=== PATIENT | female | born 1975 | race Caucasian/White ===

== ENCOUNTER 2020-06-21 14:58 | Outpatient (CLI) | payer OTHER, SELFPAY ==
--- NOTE | ~2020-06-21 | MM_ITS ---
EXAMINATION: MM screening [facility] BI w tereza HISTORY: Screening mammogram TECHNIQUE: Craniocaudal and mediolateral oblique 3-D tomosynthesis images were obtained and synthetic 2-D images were generated. CAD analysis was submitted and interpreted. COMPARISON: 04/19/2017 diagnostic bilateral digital mammogram and limited left breast ultrasound 06/17/2007 bilateral diagnostic digital mammogram and bilateral breast ultrasound BREAST PARENCHYMAL COMPOSITION: The breasts are heterogeneously dense, which may obscure small masses . FINDINGS: There is no evidence of suspicious mass, calcification, or architectural distortion to sugg est malignancy in either breast. There has been no suspicious interval change. IMPRESSION: 1. No mammographic evidence of malignancy. 2. Recommend routine screening mammography in one year. BI-RADS Category 1: Negative Reviewed, dictated and finalized at location A.
== END 2020-06-21 14:59 | disposition home or self-care (01) ==
LOC: ANHIMG 15:01
PROVIDERS: PCP Obstetrics & Gynecology; Visit Provider Obstetrics & Gynecology
DX: Z12.31 Encounter for screening mammogram for malignant neoplasm of breast (principal)
CPT/HCPCS: 77063; 77067

== ENCOUNTER 2021-06-24 07:30 | Outpatient (CLI) | payer OTHER, SELFPAY ==
--- NOTE | ~2021-06-24 | MM_ITS ---
EXAMINATION: MM screening [facility] BI w tereza HISTORY: Screening mammogram TECHNIQUE: Craniocaudal and mediolateral oblique 3-D tomosynthesis images were obtained and synthetic 2-D images were generated. CAD analysis was submitted and interpreted. COMPARISON: No prior mammogram is available for comparison at this institution. BREAST PARENCHYMAL COMPOSITION: The breasts are heterogeneously dense, which may obscure small masses . FINDINGS: Bilateral mammographic asymmetries are noted. Bilateral diagnostic mammography is recommend ed, with ultrasound if required. IMPRESSION: 1. Bilateral mammographic asymmetries 2. Bilateral diagnostic mammography is recommended, with ultrasound if required BI-RADS Category 0: Incomplete: Needs additional imaging evaluation. Reviewed, dictated and finalized at location A.
== END 2021-06-24 07:31 | disposition home or self-care (01) ==
LOC: ANHIMG 07:34
PROVIDERS: PCP Obstetrics & Gynecology; Visit Provider Obstetrics & Gynecology
DX: Z12.31 Encounter for screening mammogram for malignant neoplasm of breast (principal); R92.8 Other abnormal and inconclusive findings on diagnostic imaging of breast
CPT/HCPCS: 77063; 77067

== ENCOUNTER 2021-07-15 11:50 | Outpatient (CLI) | payer OTHER, SELFPAY ==
--- NOTE | ~2021-07-15 | MMUS_ITS ---
EXAMINATION: MM diagnostic carlos BI w tereza, US breast BI complete HISTORY: Bilateral mammographic asymmetries reported on 06/24/2021 screening mammogram TECHNIQUE: Additional 3-D tomosynthesis images of both breasts were performed and synthetic 2-D image s were generated. CAD analysis was submitted and interpreted. High resolution bilateral complete krishna st ultrasound including all 4 quadrants and subareolar areas was performed. COMPARISON: 06/24/2021, 06/21/2020, 04/19/2017 bilateral screening mammogram examinations FINDINGS: MAMMOGRAPHIC FINDINGS: No suspicious reproducible mass or architectural distortion is evident. Occasional benign calcificati ons. No skin thickening or retraction. ULTRASOUND: No suspicious solid lesion or shadowing of either breast is detected. Right breast: 1:00 near nipple: 3.3 x 3 mm cyst 6:00 3 cm from nipple: 4.4 x 8.1 mm partially septated cyst Left breast: 12:00 near nipple: 5.8 x 2.4 x 4.3 mm simple cyst with through transmission posterior enhancement IMPRESSION: 1. No mammographic evidence of malignancy 2. Routine annual mammographic screening is recommended BI-RADS Category 2: Benign finding(s). Reviewed, dictated and finalized at location A. YNAECOLOGIST IMPRESSION: 1. No mammographic evidence of malignancy 2. Routine annual mammographic screening is recommended BI-RADS Category 2: Benign finding(s).
== END 2021-07-15 11:51 | disposition home or self-care (01) ==
LOC: ANHIMG 11:51
PROVIDERS: PCP Obstetrics & Gynecology; Visit Provider Obstetrics & Gynecology
DX: R92.8 Other abnormal and inconclusive findings on diagnostic imaging of breast (principal)
CPT/HCPCS: 76641; 77062; 77066; G0279

== ENCOUNTER → 2023-04-13 12:48 | Outpatient (CLI) | payer OTHER, SELFPAY ==
--- NOTE | ~2023-04-13 | MM_ITS ---
EXAMINATION: MM screening [facility] BI w tereza HISTORY: Screening mammogram TECHNIQUE: Craniocaudal and mediolateral oblique 3-D tomosynthesis images were obtained and synthetic 2-D images were generated. CAD analysis was submitted and interpreted. COMPARISON: 07/15/2021, 06/24/2021, 06/21/2020, 04/19/2017 BREAST PARENCHYMAL COMPOSITION: There are scattered areas of fibroglandular density. FINDINGS: No suspicious mass, calcification, or architectural distortion are identified in either gisela ast to suggest malignancy. There has been no suspicious interval change. IMPRESSION: 1. No mammographic evidence of malignancy. 2. Recommend routine screening mammography in one year. BI-RADS Category 1: Negative Reviewed, dictated and finalized at location A.
== END ==
PROVIDERS: PCP Obstetrics & Gynecology; Visit Provider Obstetrics & Gynecology
DX: Z12.31 Encounter for screening mammogram for malignant neoplasm of breast (principal)
CPT/HCPCS: 77063; 77067

== ENCOUNTER 2023-08-17 12:43 | Outpatient (CLI) | payer OTHER, SELFPAY ==
--- NOTE | ~2023-08-17 | US_ITS ---
EXAMINATION: US pelvic complete w TV DATE: 08/17/2023 13:06 INDICATION: Abnormal uterine bleeding. TECHNIQUE: Multiple transabdominal and transvaginal sonographic images of the pelvis were obtained. COMPARISON: None. FINDINGS: TRANSABDOMINAL ULTRASOUND: The uterus measures 7.3 x 4.2 x 3.4 cm. There is no free fluid in the pelvis. TRANSVAGINAL ULTRASOUND: The endometrial complex measures 5 mm in thickness. There is a 1.6 cm intramural fibroid anteriorly. The ovaries are not visualized. IMPRESSION: 1. Uterine fibroid. Reviewed, dictated and finalized at location A. REL PATTERNMAKER IMPRESSION: 1. Uterine fibroid.
== END 2023-08-17 12:44 ==
PROVIDERS: PCP Nurse Practitioner Family; Visit Provider Obstetrics & Gynecology
DX: N93.9 Abnormal uterine and vaginal bleeding, unspecified (principal); D25.9 Leiomyoma of uterus, unspecified
CPT/HCPCS: 76830; 76856

== ENCOUNTER 2024-07-18 10:32 | Outpatient (CLI) | payer OTHER, SELFPAY ==
--- NOTE | ~2024-07-18 | MM_ITS ---
EXAMINATION: MM screening carlos BI w tereza HISTORY: Screening mammogram TECHNIQUE: Craniocaudal and mediolateral oblique 3-D tomosynthesis images were obtained and synthetic 2-D images were generated. CAD analysis was submitted and interpreted. COMPARISON: 04/13/2023, 06/24/2021 BREAST PARENCHYMAL COMPOSITION:Not Dense. There are scattered areas of fibroglandular density. FINDINGS: No suspicious mass, calcification, or architectural distortion are identified in either gisela ast to suggest malignancy. There has been no suspicious interval change. IMPRESSION: No mammographic evidence of malignancy. Recommend routine screening mammography in one year. BI-RADS Category 1: Negative Reviewed, dictated and finalized at location M. IMPLEMENTATION SPECIALIST
== END 2024-07-18 10:33 | disposition home or self-care (01) ==
LOC: CHSIMG 10:32
PROVIDERS: PCP Nurse Practitioner Family; Visit Provider Obstetrics & Gynecology
DX: Z12.31 Encounter for screening mammogram for malignant neoplasm of breast (principal)
CPT/HCPCS: 77063; 77067

== ENCOUNTER 2024-11-30 10:00 | Emergency (ER) | payer OTHER, SELFPAY ==
--- OUTSIDE RECORDS SUMMARY | 2024-11-30 10:03 | XMS_ITS | Clinical Summary ---
Author Organization [facility] Address [address] [place] [address] Care Team Providers Care Mathematics Lecturer Name Role Phone Unavailable Primary Care Provider Unavailabl e Immunizations Name Administration Dates Next Due MODERNA COVID-19 (12+) MRNA, LNP-S, PF, 100 MCG/ 0.5 ML DOSE 10/15/2020,09/17/2020 Social History Tobacco Use Types Packs/Day Years Used Date Smoking Tobacco: Never Assessed Comments Unknown Sex and Gender Information Value Date Recorded Sex Assigned at Not on file Legal Sex Female 8:07 PM CDT Gender Identity Not on file Sexual Orientation Not on file Plan of Treatment Health Maintenance Due Date Last Done Comments Cervical Cancer Screening Pap Smear (Age 30 to 64) Every 3 Years 1976 Colorectal Cancer Screening Colonoscopy (10 Years) 1976 Annual Physical 1979 Hepatitis C 1994 DTaP, Tdap and Td Vaccines (1 - Tdap) 1995 04/23/1981, 03/30/1978, 1976, Additional history exists Hepatitis B Vaccines (1 of 3 - 19+ 3-dose series) 1995 Cervical Cancer Screening Pap with HPV Testing (Age 30 to 64) Every 5 Years 2006 Cervical Cancer Screening with HPV 2006 Mammogram Screening 2016 COVID-19 Vaccine ( season) 2024 10/15/2020, 09/17/2020 Influenza Adult (#1) 2024 Meningococcal B Vaccine Aged Out No l onger eligible based on patient's age to complete this topic Meningococcal Vaccine Aged Out No yari kian eligible based on patient's age to complete this topic Pneumococcal Vaccine: Pediatrics (0 to 5 Years) and At-Risk Patients (6 to 64 Years) Aged Out No longer eligible based on patient's age to complete this topic RSV Immunizations Under 20 Months Aged Out No longer eligible based on patient's age to complete this topic
--- OUTSIDE RECORDS SUMMARY | 2024-11-30 10:03 | XMS_ITS | Referral Summary ---
Author Organization [facility] [address] Address [address] [place] [address] Care Team Providers Care Fur Tanner Name Role Phone Kristopher Monge MD Primary Care Provider [phone] Allergies Active Allergy Reactions Criticality Noted Date Comments Doxycycline Hives Medium 07/06/2020 Minocycline Other (See comments) Low 07/06/2020 Blue blotching on legs Tetracycline Other (See comments) Low 07/06/2020 Elevated liver enzymes Medications cholecalciferol (VITAMIN D-3) 50,000 unit capsule Take 1 capsule (50,000 Units total) by mouth once a week Active multivitamin capsule Take 1 capsule by mouth daily Active esomeprazole DR (NexIUM) 40 mg capsule TAKE 1 CAPSULE BY MOUTH ONCE DAILY BEFORE BREAKFAST 30 capsule 2 Active spironolactone (ALDACTONE) 100 mg tablet Take 1 tablet (100 mg total) by mouth daily 4 Active Active Problems Problem Noted Date Diagnosed Date Colon cancer screening 11/19/2023 Encounter for screening for malignant neoplasm o f colon 11/12/2023 Family history of colon polyps, unspecified 11/01 Abnormal TSH 07/06/2020 Overview (07/06/2020): Patientreassured that in view of normal free t4, it is unlikley her symptoms are due to thyroid issues Gastroesophageal reflux disease without esophagi tis 07/06/2020 Overview (07/06/2020): PPI. EGD Social History Tobacco Use Types Packs/Day Years Used Date Smoking Tobacco: Never Smokeless Tobacco: Never AUDIT-C Answer Date Recorded Q1: How often do you have a drink containing alc ohol? Monthly or less 12/21/2023 Q2: How many drinks containi ng alcohol do you have on a typical day when you are drinking? 1 or 2 12/21/2023 Q3: How often do you have si x or more drinks on one occasion? Never 12/21/2023 Personal Safety Answer Date Recorded Have you ever been in or are you currently in a harmful physical or emotional relationship or is someone making you feel afraid or unsafe? 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 Gender Identity Not on file Sexual Orientation Not on file Last Filed Vital Signs Vital Sign Reading Time Taken Comments Blood Pressure 118/76 01/20/2024 5:22 PM CDT Pulse 68 01/20/2024 5:22 PM CDT Temperature 36.9 C (98.4 F) 01/20/2024 5:22 PM CDT Respiratory Rate 16 01/20/2024 5:22 PM CDT Oxygen Saturation 100% 01/20/2024 5:22 PM CDT Inhaled Oxygen Concentration - - Weight 77.8 kg (171 lb 8 oz) 01/20/2024 5:22 PM CDT Height 167.6 cm (5' 6 ) 01/20/2024 5:22 PM CDT Body Mass Index 27.68 01/20/2024 5:22 PM CDT Plan of Treatment Scheduled Procedures Name Priority Associated Diagnoses Date/Ti me COLONOSCOPY Open Access Encounter for screening for malignant neoplasm of colon Family history of colon polyps, unspecified Procedures Procedure Name Priority Date/Time Associated Diagnosis Comments COLONOSCOPY 12/21/2023 11:30 AM CDT from Last 3 Months or Most Recently Relevant to Health Maintenance Results * Colonoscopy (12/21/2023 11:30 AM CDT) Anatomical Region Laterality Modality Other Narrative Procedure Note Delmar Ortiz MD PhD - 12/21/2023 11:30 AM CDT [facility] Patient Name: Mylene Badillo Procedure Date: 12/21/2023 11:30 AM Date of : 1975 Admit Type: Outpatient Age: 48 Gender: Female Attending MD: Delmar Ortiz MD,PHD Room: [facility] ENDOSCOPY ROOM 8 Note Status: Case Work Aide Override THIS EXAM WAS SENT IN ERROR Delmar Ortiz MD PhD ENDOSCOPY PROCEDURES E dited Result - Final from Last 3 Months or Most Recently Relevant to Health Maintenance Insurance [place] [address] [facility] Address: [id number] [place] [id number] [place] [address] [facility] Address: [place] [address] Advance Directives For more information, please contact: [phone] * Full Code (Latest Code Status on File) Date Activated Date Inactivated Comments 12/21/2023 12:05 PM 12/21/2023 6:13 PM * Full Code Date Activated Date Inactivated Comments 10/01/2020 12:42 PM 10/01/2020 7:07 PM Care Teams Fur Tanner Relationship Specialty Start Date End Date Kristopher Monge MD [address] [id number] PCP - General Family Medicine 11/12/23
--- OUTSIDE RECORDS SUMMARY | 2024-11-30 10:03 | XMS_ITS | Clinical Summary ---
Author Organization [facility] [address] Address [address] [place] [address] Care Team Providers Care Autism Specialist Name Role Phone Kristopher Monge MD Primary Care Provider [phone] Allergies Active Allergy Reactions Criticality Noted Date [...] esophagi tis 07/06/2020 Overview (07/06/2020): PPI. EGD Surgical History Surgery Date Site/Laterality Comments TURBINOPLASTY Medical History Medical History Date Comments Nasal turbinate hypertrophy GERD (gastroesophageal reflux disease) Dysphagia Urolithiasis Delayed emergence from general anesthesia Family History Medical History Relation Name Comments Thyroid disease Father's Brother Thyroid disease Father's Sister Esophageal cancer Maternal Grandfather Thyroid disease Maternal Grandmother Thyroid disease Sister Relation Name Status Comments Father's Brother Father's Sister Maternal Grandfather Maternal Grandmother Sister Social History Tobacco Use Types Packs/Day Years [...] on file 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 Gender Identity Not on file Sexual Orientation Not on file Obstetrics History Last Filed Vital Signs Vital Sign Reading [...] colon Family history of colon polyps, unspecified Health Maintenance Due Date Last Done Comments Breast Cancer Screening-Mammogram 1976 Cervical Cancer Screening 1976 Depression Screening 1976 Hepatitis C Screening 1976 Regular Well Visit/Exam 18-64 1994 Covid-19 Vaccine ( season) 2024 10/15/2020, 09/17/2020 Influenza Vaccine (#1) 2024 07/18/2015, 2012 DTaP/Tdap/Td Vaccine (7 - Td or Tdap) 08/29/2029 08/29/2019, 04/05/1991, 04/23/1981, Additional history exists Colon Cancer Screening-Colonoscopy 12/20/2033 12/21/2023, 12/21/2023 Hepatitis B Screening Completed 06/19/2002 , 01/17/2002, 12/17/2001 Pneumococcal vaccine <65 Aged Out No longer eligible based on patient's age to complete this topic Procedures Procedure Name Priority Date/Time Associated Diagnosis [...] Female Attending MD: Delmar Ortiz MD,PHD Room: [facility] ENDOSCOPY ROOM 8 Note Status: Human Machine Interface Engineer Override THIS EXAM WAS SENT IN ERROR Delmar Ortiz MD PhD ENDOSCOPY PROCEDURES E dited Result - Final from Last 3 Months or Most Recently Relevant to Health Maintenance Insurance [facility] [place] [address] [facility] CHOICE PLUS [facility] Advance Directives For more information, please contact: [phone] * Full Code (Latest Code Status on File) Date Activated Date Inactivated Comments 12/21/2023 12:05 PM 12/21/2023 6:13 PM * Full Code Date Activated Date Inactivated Comments 10/01/2020 12:42 PM 10/01/2020 7:07 PM Care Teams Autism Specialist Relationship Specialty Start Date End Date Kristopher Monge MD [address] [address] PCP - General Family Medicine 11/12/23
[2024-11-30 10:12] VITALS: BP 110/69; PULSE 78; RESP 18; TEMP 36.6; O2SAT 98
--- NOTE | 2024-11-30 10:12 | ED_ITS ---
HPI - General Adult General Chief complaint: Upper Respiratory Infection Stated complaint: cough Time Seen by Provider: 11/30/24 10:04 Source: patient Mode of arrival: ambulatory Limitations: no limitations History of Present Illness HPI narrative: 49-year-old female patient presents to the [facility] with complaints of a cough for the past 6 days. Patient states she has had a lot of congestion, runny nose and a cough. Patient denies any fevers, body aches or chills. Patient states she has been using [id number] Mucinex and Delsym for her symptoms. As well as she takes a daily Zyrtec. Related Data Home Medications ?Medication ?Instructions ?Recorded ?Confirmed ?Last Taken ?Type cholecalciferol (vitamin D3) 25 25 mcg PO DAILY 11/30/24 Unknown History mcg (1,000 unit) capsule vitamin K2 45 mcg capsule 45 mcg PO DAILY 11/30/24 Unknown History Allergies Allergy/AdvReac Type Severity Reaction Status Date / Time doxycycline Allergy Mild Rash Verified 11/30/24 10:12 minocycline Allergy Mild Itching Verified 11/30/24 10:12 Review of Systems 2 Review of Systems: CONSTITUTIONAL: Denies fever, chills, or sweats. EYES: Denies visual changes, redness, or discharge. ENT: Positive rhinorrhea, congestion, sore throat, and otalgia. CARDIOVASCULAR: Denies chest pain, palpitations, or edema. RESPIRATORY: positive cough , denies dyspnea. GASTROINTESTINAL: Denies abdominal pain, nausea, vomiting, or diarrhea. GENITOURINARY: Denies dysuria or hematuria. SKIN: Denies rash or itching. MUSCULOSKELETAL: Denies back pain, joint pain, or myalgia. NEUROLOGIC: Denies headache, numbness, or weakness. PSYCHIATRIC: Denies anxiety or depression. [facility] Past Medical History Medical History Family hx colonic polyps normal colonoscopy 12/21/2023, recheck 5 years. Abdominal discomfort Encounter to establish care Low serum triiodothyronine (T3) Anemia COVID Acid reflux Environmental allergies Surgical History Surgical History H/O sinus surgery H/O gynecological procedure Mirena Iud insertion - 2014 Mirena Iud removal - 07/09/2020 H/O bilateral salpingectomy Family History Family History Grandparent Hypertension Cerebrovascular accident Family history of malignant neoplasm of breast Diabetes mellitus Mother Hypertension Father Non-Hodgkin's lymphoma Daughter Karel de la Tourette's syndrome Depression Sibling Alcoholism Depression Thyroid disease Grandparent Esophageal cancer Other Breast cancer Social History Social History Smoking status: Never smoker Alcohol intake: current Substance use: never Substance use type: does not use Do You Feel Safe in your Home?: Yes Lack of Transportation: No Lack of Food: Never True Current Housing: I Have Housing Concerned About Future Housing: No Difficulty Paying Gas/Electric Bills: No Difficulty Paying for Meds: No Currently Unemployed: No Education: Associate Degree Difficulty w/ Childcare or Family Care: No Living arrangements: with family Occupation/Education: occupation Gender identity (if verbalized by the patient): Female Comments At the time of my signature I agree with nursing past medical history, surgical, social, and family history. There is no relevant family history pertinent to the presenting complaint. Exam Narrative: GENERAL: Well-appearing, well-nourished, and in no acute distress. HEAD: Normocephalic, atraumatic. EYES: PERRLA and EOMI. ENT: Nares with erythema edema noted bilaterally, no active rhinorrhea or epistaxis. Mucous membranes moist. posterior pharynx with no erythema, tonsillar enlargement, exudates or lesions present. Bilateral TMs do appear to have some fluid behind them. No erythema no foreign bodies the canal. NECK: Supple. No lymphadenopathy CHEST: Clear to auscultation. No respiratory distress. HEART: Regular rate and rhythm. No murmur heard. Normal peripheral pulses. ABDOMEN: Soft, nontender, nondistended, normal active bowel sounds. EXTREMITIES: Normal range of motion. No edema. SKIN: Warm, dry, no rash. NEURO: No focal deficits. Alert and oriented x3. Course Course Level of Care: Express Care Visit Vital Signs Vital signs: Vital Signs Temperature 36.6 C 11/30/24 10:12 Pulse Rate 78 11/30/24 10:12 Respiratory Rate 18 11/30/24 10:12 Blood Pressure 110/69 11/30/24 10:12 Pulse Oximetry 98 03/30/25 10:12 Oxygen Delivery Room Air 11/30/24 10:12 Temperature 36.6 C 11/30/24 10:12 Pulse Rate 78 11/30/24 10:12 Respiratory Rate 18 11/30/24 10:12 Blood Pressure 110/69 11/30/24 10:12 Pulse Oximetry 98 11/30/24 10:12 Oxygen Delivery Room Air 11/30/24 10:12 Vital signs reviewed. Medical Decision Making MDM Narrative Medical decision making narrative: Re-evaluated patient notified her that there is no evidence of a bacterial infection today. Discussed with her this is most likely sinus drainage causing the cough. Plan of care for patient today is to discharge home with oral steroids to help with congestion and drainage as well as Tessalon Perles to help with cough. Patient verbalized understanding denies any other questions or concerns at this time. Differential Diagnosis Differential Diagnosis: Differential diagnosis: Allergic rhinitis, chronic sinusitis, tonsillitis, acute sinusitis, infectious mononucleosis, seasonal influenza, pertussis, diphtheria, meningococcal disease, viral syndrome, viral bronchitis, RSV, COVID- 19 Vital Signs Vital Signs: Vital Signs Temperature 36.6 C 11/30/24 10:12 Pulse Rate 78 11/30/24 10:12 Respiratory Rate 18 11/30/24 10:12 Blood Pressure 110/69 11/30/24 10:12 Pulse Oximetry 98 11/30/24 10:12 Oxygen Delivery Room Air 11/30/24 10:12 Temperature 36.6 C 11/30/24 10:12 Pulse Rate 78 11/30/24 10:12 Respiratory Rate 18 11/30/24 10:12 Blood Pressure 110/69 11/30/24 10:12 Pulse Oximetry 98 11/30/24 10:12 Oxygen Delivery Room Air 11/30/24 10:12 Critical Care Time Critical Care Time Critical Care Time: No Discharge Plan Discharge Clinical Impression: Viral URI with cough Patient Disposition: Home, Self-Care Condition: Stable Instructions: Antibiotic Form, Acute Cough (ED) Additional Instructions: Viral illness may last between 7-12days; antibiotic is NOT recommended at this time. Recommend antihistamine such as Benadryl at night time and Claritin/Zyrtec/Maria Isabel during the day Cough syrup may cause drowsiness; avoid driving or take it at night time. Also, recommend symptomatic treatment includes: rest, fluids, and increase humidity of the air at home. Recommend Acetaminophen or nonsteroidal anti-inflammatory agents (NSAIDs) as directed in the bottle to reduce fever and/pain/headache. Avoid smoking/second-hand smoke. Limit visits to areas with large crowds. Please schedule a follow-up visit with your personal physician for further evaluation and treatment within 3-5days. Including recheck and discussion of your blood pressure. If your symptoms persist, change or worsen significantly before you can contact your personal physician then please, without delay, go to the emergency department for further evaluation. Patient Language: Lithuanian Prescriptions: New benzonatate 200 mg capsule 200 mg PO TID PRN (Reason: cough) 10 Days Qty: 30 0RF prednisone 20 mg tablet 20 mg PO DAILY 5 Days Qty: 5 0RF No Action cholecalciferol (vitamin D3) 25 mcg (1,000 unit) capsule 25 mcg PO DAILY vitamin K2 45 mcg capsule 45 mcg PO DAILY spironolactone 100 mg tablet 100 mg PO DAILY Qty: 90 3RF Follow-up/Referrals: Savi Be NP [Primary Care Provider] - Time of Disposition: 10:31
== END 2024-11-30 10:34 | disposition home or self-care (01) ==
PROVIDERS: Emergency Provider Nurse Practitioner Family; PCP Nurse Practitioner Family
DX: J06.9 Acute upper respiratory infection, unspecified (principal); R05.9 Cough, unspecified; K21.9 Gastro-esophageal reflux disease without esophagitis; Z86.16 Personal history of COVID-19
CPT/HCPCS: 99213; G0463

== ENCOUNTER → 2025-03-26 16:33 | Outpatient (CLI) | payer OTHER, SELFPAY ==
--- NOTE | ~2025-03-26 | XR_ITS ---
XR ankle RT 2V 03/26/2025 16:49 INDICATION: Right ankle pain PROCEDURE: 2 views right ankle COMPARISON: No prior studies for comparison. FINDINGS: Fracture, dislocation or subluxation is not identified. Ankle mortise intact. The soft tiss ues appear within normal limits. No foreign bodies are identified. IMPRESSION: 1: NO ACUTE BONE OR JOINT ABNORMALITY IDENTIFIED. Reviewed, dictated and finalized at location A.
== END ==
LOC: EXPCRAD 16:36
PROVIDERS: PCP Nurse Practitioner Family; Visit Provider Nurse Practitioner Family
DX: M25.571 Pain in right ankle and joints of right foot (principal)
CPT/HCPCS: 73600

== ENCOUNTER 2025-07-24 08:19 | Outpatient (CLI) | payer OTHER, SELFPAY ==
--- NOTE | ~2025-07-24 | MM_ITS ---
EXAMINATION: MM screening carlos BI w tereza HISTORY: Screening TECHNIQUE: Craniocaudal and mediolateral oblique 3-D tomosynthesis images were obtained and synthetic 2-D images were generated. CAD analysis was submitted and interpreted. COMPARISON: Comparison to multiple prior studies sequentially, with oldest reviewed study dated 04/19/2017. BREAST PARENCHYMAL COMPOSITION: Not dense: There are scattered areas of fibroglandular density. FINDINGS: There is no evidence of suspicious mass, calcification, or architectural distortion to suggest malignancy in either breast. There has been no suspicious interval change. IMPRESSION: 1. No mammographic evidence of malignancy. 2. Recommend routine screening mammography in one year. BI-RADS Category 1: Negative Reviewed, dictated and finalized at location [facility] [employer]
--- OUTSIDE RECORDS SUMMARY | 2025-07-24 08:22 | XMS_ITS | Clinical Summary ---
Author Organization [facility] Address [address] [place] [address] Care Team Providers Care Accounting Professional Name Role Phone Unavailable Primary Care Provider Unavailabl e Immunizations Immunization Administration Dates Next Due MODERNA COVID-19 (12+) [...] Mammogram Screening 2016 COVID-19 Vaccine ( season) 2025 10/15/2020, 09/17/2020 Influenza Adult (#1) 2025 Hepatitis A Vaccines Aged Out No long er eligible based on patient's age to complete this topic Meningococcal B Vaccine Aged Out No l onger eligible based on patient's age to complete this topic Meningococcal Vaccine Aged Out No yari kian eligible based on patient's age to complete this topic Pneumococcal Vaccine: Pediatrics (0 to 5 Years) and At-Risk Patients (6 to 49 Years) Aged Out No longer eligible based on patient's age to complete this topic RSV Immunizations Under 20 Months Aged Out No longer eligible based on patient's age to complete this topic
--- OUTSIDE RECORDS SUMMARY | 2025-07-24 08:22 | XMS_ITS | Clinical Summary ---
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 Gender Identity Not on file Sexual Orientation [...] 5:22 PM CDT Height 167.6 cm (5' 6) 01/20/2024 5:22 PM CDT Body Mass Index [...] Visit/Exam 18-64 1994 Covid-19 Vaccine ( season) 2025 10/15/2020, 09/17/2020 Influenza Vaccine (#1) 2025 07/18/2015, 2012 DTaP/Tdap/Td Vaccine (7 - Td [...] Female Attending MD: Delmar Ortiz MD,PHD Room: [facility] ENDOSCOPY ROOM 8 Note Status: Hedis Specialist Override THIS EXAM WAS SENT IN ERROR Delmar Ortiz MD PhD ENDOSCOPY PROCEDURES E dited Result - Final from Last 3 Months or Most Recently Relevant to Health Maintenance Insurance [facility] [place] [address] [facility] CHOICE PLUS [facility] Advance Directives For more information, please contact: [phone] * Full Code (Latest Code Status on File) Date Activated Date Inactivated Comments 12/21/2023 12:05 PM 12/21/2023 6:13 PM * Full Code Date Activated Date Inactivated Comments 10/01/2020 12:42 PM 10/01/2020 7:07 PM Care Teams Materials Planner/Production Planner Relationship Specialty Start Date End Date Kristopher Monge MD [email or web address] [address] PCP - General Family Medicine 11/12/23
== END 2025-07-24 08:20 | disposition home or self-care (01) ==
PROVIDERS: PCP Nurse Practitioner Family; Visit Provider Obstetrics & Gynecology
DX: Z12.31 Encounter for screening mammogram for malignant neoplasm of breast (principal)
CPT/HCPCS: 77063; 77067